=== PATIENT | male | born 1970 | race Caucasian/White ===

== ENCOUNTER 2019-02-14 09:50 | Inpatient (IN) | payer MEDICAID ==
[2019-02-13 11:58] LABS: HEMATOCRIT 39.6 % (42.0-54.0); HEMOGLOBIN 13.7 g/dL (13.5-17.5); MCH 28.7 pg (26.0-34.0); MCHC 34.6 g/dL (31.0-37.0); MCV 82.8 fL (80.0-100.0); MEAN PLATELET VOLUME 9.6 fL (7.4-10.4); RBC 4.78 10x6/uL (4.20-6.10); RDW 13.6 % (11.5-14.5); WBC 6.8 10x3/uL (4.8-10.8)
[2019-02-13 12:08] LABS: CALC OSMOLALITY 281 mosm/kg (275-300); CALCIUM 9.6 mg/dL (8.5-10.1); CARBON DIOXIDE 29.5 mmol/L (21.0-32.0); CHLORIDE - SERUM 99 mmol/L (98-107); CREATININE - SERUM 0.9 mg/dL (0.6-1.3); POTASSIUM - SERUM 5.1 mmol/L (3.5-5.1); SODIUM 136 mmol/L (136-145); UREA NITROGEN 15 mg/dL (7-18); eGFR NON AFRICAN AMERICAN > 90 mL/min (90-120)
[2019-02-13 12:10] LABS: GLUCOSE 260 mg/dL (74-106)
[~2019-02-14] VITALS: Ht 188 cm; Wt 97.7 kg
[~2019-02-14 09:50] MED LIST: CYMBALTA60 MG PO; GABAPENTIN100 MG PO; GLUCOPHAGE500 MG PO; GLUCOTROL 5 MG T5 MG PO; VOLTAREN75 MG PO
[2019-02-14 10:17] VITALS: BP 136/69; BMI 27.6
--- NOTE | 2019-02-14 15:30 | NUR ---
RECEIVED TO ROOM 2209 VIA BED FROM PACU. A/O X3. NO C/O AT THIS TIME. DRESSING TO RIGHT FOOT DRY AND INTACT. DENIES NEEDS. VSS.
[2019-02-14 15:46] VITALS: BP 133/74; Ht 188 cm; Wt 97.7 kg
[2019-02-14 15:59] VITALS: BP 135/88
[2019-02-14 16:58] VITALS: BP 127/76
--- NOTE | 2019-02-14 18:30 | NUR ---
ATE ALL OF SUPPER. AT BEDSIDE. NO C/O AT THIS TIME. DENIES NEEDS. NO CHANGES NOTED.
[2019-02-14 20:07] VITALS: BP 132/73
[2019-02-15 07:36] LABS: BASOPHILS 0.4 % (0-2); HEMATOCRIT 36.8 % (42.0-54.0); HEMOGLOBIN 12.1 g/dL (13.5-17.5); IMMATURE GRANULOCYTES 0.5 % (0-5); LYMPHOCYTES 25.1 % (15-50); MCH 27.8 pg (26.0-34.0); MCHC 32.9 g/dL (31.0-37.0); MCV 84.6 fL (80.0-100.0); MEAN PLATELET VOLUME 10.3 fL (7.4-10.4); MONOCYTES 7.8 % (2-11); NEUTROPHILS 63.2 % (40-80); PLATELET COUNT 198 10x3/uL (130-400); RBC 4.35 10x6/uL (4.20-6.10); RDW 13.8 % (11.5-14.5); WBC 7.4 10x3/uL (4.8-10.8)
[2019-02-15 07:50] LABS: CALC OSMOLALITY 281 mosm/kg (275-300); CALCIUM 8.5 mg/dL (8.5-10.1); CARBON DIOXIDE 28.4 mmol/L (21.0-32.0); CHLORIDE - SERUM 104 mmol/L (98-107); CREATININE - SERUM 0.9 mg/dL (0.6-1.3); POTASSIUM - SERUM 4.6 mmol/L (3.5-5.1); SODIUM 139 mmol/L (136-145); UREA NITROGEN 15 mg/dL (7-18); eGFR NON AFRICAN AMERICAN > 90 mL/min (90-120)
[2019-02-15 07:51] LABS: GLUCOSE 155 mg/dL (74-106)
[2019-02-15 10:25] VITALS: BP 131/84
--- NOTE | 2019-02-15 10:49 | NUR ---
PT ALERT X 4. BREATH SOUNDS CLEAR BILAT. IV TO LEFT HAND, PATENT, DRESSING CDI. SORES TO LEFT SCALES. RIGHT TOE REPORTED AMPUTATED, DRESSING CDI. PT REPORTING NO PAIN AT THIS TIME. FAMILY AT BEDSIDE. BED LOW, CALL LIGHT IN REACH. NO OTHER NEEDS AT THIS TIME.
[2019-02-15 13:14] VITALS: BP 133/81
[2019-02-15 17:32] VITALS: BP 138/81
--- NOTE | 2019-02-15 20:00 | NUR ---
PT ALERT AND ORIENTED. SPOUSE AT BEDSIDE. UPRIGHT AND IN CHAIR. RIGHT FOOT HAS DRESSING TO GREAT TOE AREA. CLEAN DRY AND INTACT. PT ON ROOM AIR. LEFT HAND IV THAT IS INFUSING NS @ KVO RATE. HAS LEFT SCALES SCABS. DENIES PAIN AT THIS TIME. DENIES NEEDS AT THIS TIME. EDUCATED ON DIABETES AND PAIN MEDICATION. CALL LIGHT IN REACH. VERBALIZES UNDERSTANDING. CPOC.
[2019-02-15 20:55] VITALS: BP 130/67
[2019-02-16 01:14] VITALS: BP 132/81
--- NOTE | 2019-02-16 03:29 | NUR ---
I have reviewed this patient and I concur with the Shift Assessment completed by the Licensed Practical Nurse today this shift.
[2019-02-16 07:00] LABS: BASOPHILS 0.3 % (0-2); EOSINOPHILS 3.4 % (0-7); HEMATOCRIT 36.2 % (42.0-54.0); IMMATURE GRANULOCYTES 0.5 % (0-5); LYMPHOCYTES 30.2 % (15-50); MCH 27.6 pg (26.0-34.0); MCHC 33.1 g/dL (31.0-37.0); MCV 83.4 fL (80.0-100.0); MEAN PLATELET VOLUME 10.6 fL (7.4-10.4); MONOCYTES 10.8 % (2-11); NEUTROPHILS 54.8 % (40-80); PLATELET COUNT 184 10x3/uL (130-400); RBC 4.34 10x6/uL (4.20-6.10); RDW 13.7 % (11.5-14.5); WBC 6.1 10x3/uL (4.8-10.8)
[2019-02-16 07:26] LABS: ALBUMIN 2.8 g/dL (3.4-5.0); ALKALINE PHOSPHATASE 74 U/L (46-116); ALT (SGPT) 16 U/L (10-68); BILIRUBIN - TOTAL 0.23 mg/dL (0.2-1.3); CALCIUM 8.6 mg/dL (8.5-10.1); CARBON DIOXIDE 27.7 mmol/L (21.0-32.0); CHLORIDE - SERUM 106 mmol/L (98-107); CREATININE - SERUM 0.8 mg/dL (0.6-1.3); GLUCOSE 191 mg/dL (74-106); PROTEIN - SERUM 6.4 g/dL (6.4-8.2); SODIUM 141 mmol/L (136-145); eGFR NON AFRICAN AMERICAN > 90 mL/min (90-120)
[2019-02-16 07:29] LABS: CALC OSMOLALITY 284 mosm/kg (275-300); POTASSIUM - SERUM 3.7 mmol/L (3.5-5.1); UREA NITROGEN 10 mg/dL (7-18)
--- NOTE | 2019-02-16 08:10 | NUR ---
PT RESTING IN BED. AT BEDSIDE. NO S/S OF ACUTE DISTRESS. CL IN PLACE.
[2019-02-16 08:16] VITALS: BP 128/72
[2019-02-16 12:49] VITALS: BP 121/75
--- NOTE | 2019-02-16 18:17 | NUR ---
PT RESTING IN BED. WATCHING TV. NO S/S OF ACUTE DISTRESS. CL IN PLACE.
--- NOTE | 2019-02-16 19:15 | NUR ---
PT ALERT AND ORIENTED WITH AT BEDSIDE. DRESSING TO THE GREAT RIGHT TOE IS CLEAN AND INTACT. DISCUSSED NEW Q 4 SCHEDULE AND HIGH RESISTANCE SCALE WITH PATIENT. PATIENT VERBALIZES UNDERSTANDING OF EDUCATION. STATES AT HOME HE TAKES METFORMIN AND GLIPIZIDE AND DOES NOT CHECK SUGAR. STATES "I JUST ROLL WITH IT." DENIES PAIN AT THIS TIME. LEFT HAND IV REMAINS PATENT AND INFUSING NS @ 50. HAS CALL LIGHT IN HAND. ROOM AIR. BED LOCKED AND LOWERED. CPOC.
[2019-02-16 20:00] VITALS: BP 133/73
[2019-02-17] VITALS: BP 131/75
--- NOTE | 2019-02-17 03:41 | NUR ---
I have reviewed this patient and I concur with the Shift Assessment completed by the Licensed Practical Nurse today this shift.
[2019-02-17 06:17] LABS: BASOPHILS 0.4 % (0-2); EOSINOPHILS 3.8 % (0-7); HEMATOCRIT 33.9 % (42.0-54.0); HEMOGLOBIN 11.6 g/dL (13.5-17.5); IMMATURE GRANULOCYTES 0.7 % (0-5); LYMPHOCYTES 32.4 % (15-50); MCH 28.5 pg (26.0-34.0); MCHC 34.2 g/dL (31.0-37.0); MCV 83.3 fL (80.0-100.0); MEAN PLATELET VOLUME 10.6 fL (7.4-10.4); MONOCYTES 11.7 % (2-11); PLATELET COUNT 170 10x3/uL (130-400); RBC 4.07 10x6/uL (4.20-6.10); RDW 13.8 % (11.5-14.5); WBC 5.6 10x3/uL (4.8-10.8)
[2019-02-17 06:55] LABS: ALBUMIN 2.8 g/dL (3.4-5.0); ALKALINE PHOSPHATASE 73 U/L (46-116); ALT (SGPT) 16 U/L (10-68); BILIRUBIN - TOTAL 0.24 mg/dL (0.2-1.3); CALC OSMOLALITY 280 mosm/kg (275-300); CALCIUM 8.4 mg/dL (8.5-10.1); CARBON DIOXIDE 27.6 mmol/L (21.0-32.0); CHLORIDE - SERUM 106 mmol/L (98-107); CREATININE - SERUM 0.9 mg/dL (0.6-1.3); GLUCOSE 145 mg/dL (74-106); POTASSIUM - SERUM 3.9 mmol/L (3.5-5.1); PROTEIN - SERUM 6.1 g/dL (6.4-8.2); SODIUM 140 mmol/L (136-145); UREA NITROGEN 11 mg/dL (7-18); eGFR NON AFRICAN AMERICAN > 90 mL/min (90-120)
--- NOTE | 2019-02-17 07:41 | NUR ---
ALERT AND ORIENTED. LUNGS CLEAR BILATERALLY IN ALL PRATT. HEART SOUNDS S1 AND S2 HEARD IN ALL PRATT. DRSG IN PLACE TO RIGHT FOOT. SKIN OTHERWISE INTACT WITHOUT REDNESS. DENIES PAIN. DENIES NEEDS. BED LOW. FALL PRECAUTIONS IN PLACE. CALL FRANCIS AND PERSONAL ITEMS INREACH. WILL CONTINUE TO MONITOR.
[2019-02-17 07:43] LABS: % SATURATION 17 % (15-55); IRON 47 ug/dl (35-150); TOTAL IRON BIND CAPACITY 269 ug/dl (260-445); UNSAT IRON BIND CAPACITY 222 ug/dl (150-375)
[2019-02-17 08:20] VITALS: BP 143/67
--- NOTE | 2019-02-17 09:07 | NUR ---
EDUCATION PROVIDED ON NEED FOR URINE AND STOOL SAMPLE. HATS PLACED IN ROOM.
--- NOTE | 2019-02-17 10:25 | NUR ---
RESTING IN BED. DENIES PAIN. DENIES NEEDS. WILL CONTINUE TO MONITOR.
[2019-02-17 12:39] VITALS: BP 164/81
[2019-02-17 13:02] LABS: APPEARANCE CLEAR (CLEAR); BILIRUBIN NEGATIVE (NEGATIVE); COLOR STRAW (YELLOW); GLUCOSE 1000 mg/dL (NEGATIVE); KETONE NEGATIVE (NEGATIVE); NITRITE NEGATIVE (NEGATIVE); PROTEIN 1+ mg/dL (NEGATIVE); UROBILINOGEN NORMAL (NORMAL)
[2019-02-17 13:03] LABS: MUCUS <1+ /lpf (NONE SEEN)
--- NOTE | 2019-02-17 13:30 | NUR ---
RESTING IN BED. DENIES PAIN. DENIES NEEDS. WILL CONTINUE TO MONITOR.
--- NOTE | 2019-02-17 15:14 | NUR ---
PATIENT SLEEPING. WILL CONTINUE TO MONITOR.
[2019-02-17 17:15] VITALS: BP 154/54
--- NOTE | 2019-02-17 19:35 | NUR ---
PT SITTING UP IN BED WITHOUT DISTRESS, ALERT AND ORIENTED. AT BEDSIDE. DENIES PAIN OR NEEDS. DRESSING TO RIGHT FOOT CDI. REFUSES SCDS. CL IN REACH, WILL CTM
[2019-02-17 20:00] VITALS: BP 159/65
--- NOTE | 2019-02-17 20:30 | NUR ---
FSBS 191, GAVE 4 UNITS PER SS. DENIES OTHER NEEDS
[2019-02-18] VITALS: BP 140/70
--- NOTE | 2019-02-18 00:30 | NUR ---
FSBS 189, GAVE 4 UNITS PER SS. STATES PAIN 10/16. NORCO GIVEN ORDERED. DENIES OTHER NEEDS. CL IN REACH, WILL CTM
[2019-02-18 04:00] VITALS: BP 127/76
--- NOTE | 2019-02-18 04:20 | NUR ---
FSBS 93, NO COVERAGE NEEDED PER SS. DENIES OTHER NEEDS. CL IN REACH, WILL CTM
[2019-02-18 07:00] LABS: ALBUMIN 2.8 g/dL (3.4-5.0); ALKALINE PHOSPHATASE 66 U/L (46-116); ALT (SGPT) 20 U/L (10-68); BILIRUBIN - TOTAL 0.29 mg/dL (0.2-1.3); CALC OSMOLALITY 287 mosm/kg (275-300); CALCIUM 8.5 mg/dL (8.5-10.1); CARBON DIOXIDE 27.4 mmol/L (21.0-32.0); CHLORIDE - SERUM 108 mmol/L (98-107); CREATININE - SERUM 0.9 mg/dL (0.6-1.3); GLUCOSE 99 mg/dL (74-106); PROTEIN - SERUM 6.1 g/dL (6.4-8.2); SODIUM 145 mmol/L (136-145); UREA NITROGEN 11 mg/dL (7-18); eGFR NON AFRICAN AMERICAN > 90 mL/min (90-120)
--- NOTE | 2019-02-18 07:47 | NUR ---
ALERT AND ORIENTED. LUNGS CLEAR BILATERALLY IN ALL PRATT. HEART SOUNDS S1 AND S2 HEARD IN ALL PRATT. BOWEL SOUNDS ACTIVE X 4. SKIN INTACT WITHOUT REDNESS. GAUZE WRAP IN PLACE TO RIGHT FOOT FROM RIGHT GREAT TO AMP X 4 DAYS AGO. IV TO RIGHT HAND PATENT WITHOUT REDNESS. DENIES PAIN. DENIES NEEDS. BED LOW. CALL FRANCIS AND PERSONAL ITEMS IN REACH. WILL CONTINUE TO MONITOR.
[2019-02-18 07:58] LABS: BASOPHILS 0.6 % (0-2); EOSINOPHILS 4.8 % (0-7); HEMATOCRIT 34.5 % (42.0-54.0); HEMOGLOBIN 11.7 g/dL (13.5-17.5); IMMATURE GRANULOCYTES 0.6 % (0-5); MCH 28.1 pg (26.0-34.0); MCHC 33.9 g/dL (31.0-37.0); MCV 82.9 fL (80.0-100.0); MEAN PLATELET VOLUME 10.3 fL (7.4-10.4); MONOCYTES 10.8 % (2-11); NEUTROPHILS 50.2 % (40-80); PLATELET COUNT 164 10x3/uL (130-400); RBC 4.16 10x6/uL (4.20-6.10); RDW 13.8 % (11.5-14.5); WBC 6.5 10x3/uL (4.8-10.8)
[2019-02-18 08:48] VITALS: BP 132/57
--- NOTE | 2019-02-18 08:50 | NUR ---
IV INFILTRATED TO LEFT HAND. RESITED TO RFA AFTER 2 ATTEMPTS.
[2019-02-18] MEDS ORDERED: HYDROCODON-ACE1 EA10 PO (08:57)
[2019-02-18] MEDS ORDERED: ATARAX 25 MG TA25 MG PO (08:58)
[2019-02-18] MEDS ORDERED: ROCEPHIN 1 GM/D51 G1 IV (08:59)
[2019-02-18] MEDS ORDERED: VANCOMYCIN 1 GM/1 G1 IV (09:01)
--- NOTE | 2019-02-18 09:54 | NUR ---
SITTING IN CHAIR AT BS. DENIES PAIN. DENIES NEEDS. WILL CONTINUE TO MONITOR.
--- NOTE | 2019-02-18 11:44 | MORECARE ---
CASE MANAGEMENT DISCHARGE SUMMARY PATIENT: SUNDEEP MENDES UNIT: [id number] ADM DATE: 02/14/19 AGE: 48 : 66 SEX: M ROOM/BED: D.2209 AUTHOR: MARY LOU KAPLAN PHYSICIAN: REFERRING PHYSICIAN: OZIEL TORO MD DATE OF SERVICE: 02/18/19 Discharge Plan Patient Name: SUNDEEP MENDES [facility] [facility] 1970 Planned Disposition: Home with Infusion Therapy Services Anticipated Discharge Date: Discharge Date: Expected LOS: Initial Reviewer: [email or web address] Initial Review Date: 02/15/2019 Generated: 02/18/19 12:44 pm DCPIA - Discharge Planning Initial Assessment Updated by [email or web address]: Kasey Carr on 02/18/19 11:42 am * Is the patient Alert and Oriented? Yes * How many steps to enter\exit or inside your home? * PCP ELLIOT * [facility] * Preadmission Environment Home with Family * ADLs Independent * Equipment None * List name and contact numbers for known caregivers / representatives who currently or will assist patient after discharge: JULIO CESAR MENDES [phone] * Verbal permission to speak to the caregivers and representatives has been obtained from the patient. N/A * Community resources currently utilized None * Additional services required to return to the preadmission environment? Yes * Can the patient safely return to the preadmission environment? Yes * Has this patient been hospitalized within the prior 30 days at any hospital? No External Providers [facility] Next Contact Date: Service Request Date: Service Type: Resolution: Reviewer: Comments: External Provider: [facility] Next Contact Date: Service Request Date: Service Type: Resolution: Reviewer: Comments: Patient Name: SUNDEEP MENDES Page 12037 at 1144 All edits/amendments must be made on the electronic document DICTATION DATE: 02/18/19 1144 FIRE OFFICIAL: REX 02/18/19 1144 RPT#: [id number] DC DATE: STATUS: ADM IN [facility] [id number] [place] [address] END OF REPORT
--- NOTE | 2019-02-18 11:50 | MORECARE ---
CASE MANAGEMENT DISCHARGE SUMMARY PATIENT: SUNDEEP MENDES UNIT: [id number] ADM DATE: 02/14/19 AGE: 48 : 66 SEX: M ROOM/BED: D.0007 AUTHOR: MARY LOU KAPLAN PHYSICIAN: REFERRING PHYSICIAN: OZIEL TORO MD DATE OF SERVICE: 02/18/19 Discharge Plan Patient Name: SUNDEEP MENDES Facility: [facility]:[place] : 1970 Planned Disposition: Home with Infusion Therapy Services Anticipated Discharge Date: Discharge Date: Expected LOS: Initial Reviewer: [email or web address] Initial Review Date: 02/15/2019 Generated: 02/18/19 12:50 pm Comments DCP- Discharge Planning Updated by [email or web address]: Kasey Carr on 02/18/19 10:[address] Patient Name: SUNDEEP MENDES Admission Status: Elective Accout number: [id number] Admission Date: 02-14-2019 : 1970 Admission Diagnosis:TYPE 2 DIABETES MELLITUS WITH OTHER SPECIFIED COMPLICAT Attending: OZIEL TORO Current LOS: 4 Anticipated DC Date: Planned Disposition: Home with Infusion Therapy Services Primary Insurance: [employer]IONS SHERICE Discharge Planning Comments: CM met with patient to complete initial dc planning assessment. CM educated patient on the CM role and verbal consent given by patient to complete assessment. Patient lives at home with his where he is independent with his care. At discharge patient plans to return home and feels this is a safe discharge. CM discussed availability of home health, rehab services, and medical equipment. He does not use any DME, but he will be discharging home with IV abx and Home health. He did not have a preference for any company as long as they take his insurance and the cheapest. His will drive him home. I have sent a referral to [email or web address] for prices. RAÚL signed and placed in chart. Patient denied known discharge needs at this time. CM will continue to follow and will assist as needed with dc plans/needs. Purchasing Intern: Kasey Carr DCPIA - Discharge Planning Initial Assessment Updated by [email or web address]: Kasey Carr on 02/18/19 11:42 am * Is the patient Alert and Oriented? Yes * How many steps to enter\exit or inside your home? * PCP ELLIOT * [facility] * Preadmission Environment Home with Family * ADLs Independent * Equipment None * List name and contact numbers for known caregivers / representatives who currently or will assist patient after discharge: JULIO CESAR MENDES [phone] * Verbal permission to speak to the caregivers and representatives has been obtained from the patient. N/A * Community resources currently utilized None * Additional services required to return to the preadmission environment? Yes * Can the patient safely return to the preadmission environment? Yes * Has this patient been hospitalized within the prior 30 days at any hospital? No Coverage Notice Reviewer: [email or web address] Abimbola Carr Notice Issued Date-Time: 02/18/2019 11:30 Notice Type: Patient Choice Letter Notice Delivered To: Patient Relationship to Patient: Research Executive Name: Delivery Method: HAND - Hand Delivered Astrid Days: Prior Verbal Notification: Recipient Understood Notice: Yes Recipient Signature: Yes Med Rec Note Co-signed by Attending: Coverage Notice Comment: [facility] for hh and iv infusion did not care what company whatever is cheapest and takes his insurance Last DP export: 02/18/19 10:44 a Patient Name: SUNDEEP MENDES Page 09026 at 1150 All edits/amendments must be made on the electronic document DICTATION DATE: 02/18/19 1150 HELICOPTER PILOT: REX 02/18/19 1150 RPT#: [id number] DC DATE: STATUS: ADM IN [facility] [address] [place] [address] END OF REPORT
[2019-02-18 13:47] VITALS: BP 191/94
--- NOTE | 2019-02-18 14:19 | MORECARE ---
CASE MANAGEMENT DISCHARGE SUMMARY PATIENT: SUNDEEP MENDES UNIT: [id number] ADM DATE: 02/14/19 AGE: 48 : 66 SEX: M ROOM/BED: D.2209 AUTHOR: MARY LOU KAPLAN PHYSICIAN: REFERRING PHYSICIAN: OZIEL TORO MD DATE OF SERVICE: 02/18/19 Discharge Plan Patient Name: SUNDEEP MENDES Facility: [facility]:[place] : 1970 Planned Disposition: Home with Infusion Therapy Services Anticipated Discharge Date: Discharge Date: Expected LOS: Initial Reviewer: [email or web address] Initial Review Date: 02/15/2019 Generated: 02/18/19 3:18 pm Comments DCP- Discharge Planning Updated by [email or web address]: Kasey Carr on 02/18/19 1:[address] Kellie Gaston with [facility] is here to do teaching with and patient DCP- Discharge Planning Updated by [id number]: Kasey Carr on 02/18/19 1:[address] [facility] is covered 100% by his insurance and [facility] will be taking patient and see tomorrow I have contacted ray to let him know DCP- Discharge Planning Updated by [email or web address]: Kasey Carr on 02/18/19 10:[address] Patient Name: SUNDEEP MENDES Admission Status: Elective Accout number: [id number] Admission Date: 02-14-2019 : 1970 Admission Diagnosis:TYPE 2 DIABETES MELLITUS WITH OTHER SPECIFIED COMPLICAT Attending: OZIEL TORO Current LOS: 4 Anticipated DC Date: Planned Disposition: Home with Infusion Therapy Services Primary Insurance: [employer] [place] PRIVATE OPTIONS [employer]ER[place] Discharge Planning Comments: CM met with patient to complete initial dc planning assessment. CM educated patient on the CM role and verbal consent given by patient to complete assessment. Patient lives at home with his where he is independent with his care. At discharge patient plans to return home and feels this is a safe discharge. CM discussed availability of home health, rehab services, and medical equipment. He does not use any DME, but he will be discharging home with IV abx and Home health. He did not have a preference for any company as long as they take his insurance and the cheapest. His will drive him home. I have sent a referral to [facility] for prices. RAÚL signed and placed in chart. Patient denied known discharge needs at this time. CM will continue to follow and will assist as needed with dc plans/needs. Printing Mechanist: Kasey Carr DCPIA - Discharge Planning Initial Assessment Updated by [email or web address]: Kasey Carr on 02/18/19 11:42 am * Is the patient Alert and Oriented? Yes * How many steps to enter\exit or inside your home? * PCP ELLIOT * [facility] * Preadmission Environment Home with Family * ADLs Independent * Equipment None * List name and contact numbers for known caregivers / representatives who currently or will assist patient after discharge: JULIO CESAR MENDES [phone] * Verbal permission to speak to the caregivers and representatives has been obtained from the patient. N/A * Community resources currently utilized None * Additional services required to return to the preadmission environment? Yes * Can the patient safely return to the preadmission environment? Yes * Has this patient been hospitalized within the prior 30 days at any hospital? No Coverage Notice Reviewer: [email or web address] - Kasey Carr Notice Issued Date-Time: 02/18/2019 11:30 Notice Type: Patient Choice Letter Notice Delivered To: Patient Relationship to Patient: Programmer Analyst Consultant Name: Delivery Method: HAND - Hand Delivered Astrid Days: Prior Verbal Notification: Recipient Understood Notice: Yes Recipient Signature: Yes Med Rec Note Co-signed by Attending: Coverage Notice Comment: raúl for hh and iv infusion did not care what company whatever is cheapest and takes his insurance Last DP export: 02/18/19 10:50 a Patient Name: SUNDEEP MENDES Page 05319 at 1419 All edits/amendments must be made on the electronic document DICTATION DATE: 02/18/191417 REMEDIATION PROJECT ENGINEER: REX 02/18/191417 RPT#: [id number] DC DATE: STATUS: ADM IN [facility] [address] [place] [address] END OF REPORT
--- NOTE | 2019-02-18 14:33 | NUR ---
DISHARGE EDUCATION PROVIDED BOTH WRITTEN AND VERBAL. VERBALIZED UNDERSTANDING. DENIES FURTHER QUESTIONS. AT BEDSIDE VERBALIZED UNDERSTANDING. IV REMOVED FROM RFA WITH TIP INTACT. BOOT PROVIDED AND IN PLACE TO RIGHT FOOT. DENIES FURTHER NEEDS. PATIENT DISCHARGED HOME WITH WITH ALL BELONGINGS.
== END 2019-02-18 14:45 | disposition home health service (06) | DRG 617 ==
LOC: D.OPS 09:50 → D.PAN 12:00 → D.OPS 12:00 → D.MS 15:06 → D.OPS 15:07 → D.MS 15:08
PROVIDERS: Anesthesiology; Emergency Medicine; Internal Medicine Nephrology; ADMIT Orthopaedic Surgery; ATTEND Orthopaedic Surgery
PROC: 0Y6P0Z3 Detachment at Right 1st Toe, Low, Open Approach (ICD-10-PCS; principal; 2019-02-14 12:00)
PROC: 05HC33Z Insertion of Infusion Device into Left Basilic Vein, Percutaneous Approach (ICD-10-PCS; 2019-02-18)
DX: E11.69 Type 2 diabetes mellitus with other specified complication (principal); M86.9 Osteomyelitis, unspecified; F17.203 Nicotine dependence unspecified, with withdrawal; M00.9 Pyogenic arthritis, unspecified; E11.65 Type 2 diabetes mellitus with hyperglycemia; D64.9 Anemia, unspecified; F12.929 Cannabis use, unspecified with intoxication, unspecified

== ENCOUNTER 2019-12-11 10:05 | Day surgery (SDC) | payer MEDICAID ==
[~2019-12-11] VITALS: Ht 188 cm; Wt 96.2 kg
[~2019-12-11 10:05] MED LIST changes: +ATARAX 25 MG TA25 MG PO; +HYDROCODON-ACE1 EA10 PO; +ROCEPHIN 1 GM/D51 G1 IV; +VANCOMYCIN 1 GM/1 G1 IV
[2019-12-11 10:43] VITALS: BP 118/81; Ht 188 cm; Wt 96.2 kg
[2019-12-11] MEDS ORDERED: HYDROCODON-ACE1 EAC7 PO (14:52)
== END 2019-12-11 16:25 | disposition home or self-care (01) ==
LOC: D.OPS 10:05
PROVIDERS: ATTEND Podiatrist Foot & Ankle Surgery
DX: M20.41 Other hammer toe(s) (acquired), right foot (principal); L97.519 Non-pressure chronic ulcer of other part of right foot with unspecified severity; E11.9 Type 2 diabetes mellitus without complications

== ENCOUNTER → 2019-12-29 15:54 | Outpatient (CLI) | payer MEDICAID ==
[2019-12-11 10:43] VITALS: BMI 27.2
[~2019-12-29 15:54] MED LIST changes: +HYDROCODON-ACE1 EAC7 PO
== END | disposition home or self-care (01) ==
LOC: D.LABREF 15:54
PROVIDERS: ATTEND Podiatrist Foot & Ankle Surgery
DX: L97.512 Non-pressure chronic ulcer of other part of right foot with fat layer exposed (principal)